=== PATIENT | male | born 1955 | race Two or more races ===

== ENCOUNTER 2024-07-09 14:53 | Emergency (ER) | payer MEDICARE, MEDICAID, SELFPAY ==
[2024-07-09 14:54] VITALS: BP 154/89; PULSE 54; RESP 18; TEMP 36.7; O2SAT 98
--- NOTE | 2024-07-09 15:46 | PD.EDADULT ---
ED General RME/HPI General Chief complaint: General Adult/Misc Complain Stated complaint: SENT BY DR. CUNNINGHAM AFTER U/S OF VEINS Time Seen by Provider: 07/09/24 15:23 Arrival date/time: 07/09/24 14:53 68-year-old male presents to the ED with complaint of bilateral groin pain. Patient was sent by his primary care physician CELINE Snyder for bilateral venous duplex radiology sent the patient directly to the ER due to bilateral acute DVTs involving the mid and distal right superficial femoral and right peroneal nerves as well as left superficial femoral left popliteal and left peroneal veins. He has a past medical history of DVTs and has been taking Eliquis for the past 6 or 7 years following gallbladder surgery. He is under the care of a flatcar whacker. He was in [place] and ran out of the [employer] and returned on July 06 without contacting anyone for refills. He started to develop pain recently. He denies any chest pain, shortness of breath, or unusual headaches. Mode of arrival: ambulatory Limitations: no limitations Related Data Home Medications ?Medication ?Instructions ?Recorded ?Confirmed apixaban 5 mg tablet (Eliquis) 5 mg PO BID 08/07/19 02/06/20 atorvastatin 10 mg tablet 10 mg PO QDAY 08/07/19 02/06/20 gabapentin 300 mg capsule 300 mg PO BID 08/07/19 02/06/20 losartan 100 1 tab PO QDAY 08/07/19 02/06/20 mg-hydrochlorothiazide 12.5 mg tablet metformin 1,000 mg tablet 1,000 mg PO BID 08/07/19 02/06/20 Previous Rx's ?Medication ?Instructions ?Recorded apixaban 5 mg tablet (Eliquis) 5 mg PO BID #74 tabs 07/09/24 Allergies Allergy/AdvReac Type Severity Reaction Status Date / Time No Known Allergies Allergy Verified 07/09/24 14:57 Review of Systems Review of Systems Systems Reviewed: All systems reviewed, normal except as documented Past Medical History Past Medical History NEUROLOGIC: Negative Neurological Disorders or Seizures CARDIAC: Positive Hypercholesterolemia and Hypertension; Negative Cardiac Disorders or Congestive Heart Failure RESPIRATORY: Negative Chronic Obstructive Pulmonary Disease (COPD) or Asthma GASTROINTESTINAL: Positive Gastrointestinal Disorders and Gastroesophageal Reflux Disease GENITOURINARY: Negative Genitourinary Disorders or Renal Disease MUSCULOSKELETAL: Positive Musculoskeletal Disorders and Arthritis ENDOCRINE: Positive Endocrine Disorders and Diabetes Mellitus Type 2; Negative Diabetes Mellitus Type 1 HEMATOLOGIC: Positive Clotting Problems; Negative Sickle Cell Disease OTHER HISTORY: Positive Chicken Pox, Measles and Mumps; Negative Hospitalization, Autoimmune Disease, Falls, Blood Transfusions, Blood Transfusion Reaction or Anesthesia Reactions Family History FAMILY HISTORY: Negative Family Cardiac Disorders Surgical History SURGICAL: Positive Joint Replacement (LEFT knee replacement) and Open Reduction Internal Fixation (LEFT ANKLE LIGAMENT REPAIR) Social History SMOKING STATUS: Former smoker ED Exam Narrative Physical exam: 68-year-old male, no acute distress, no respiratory distress. Bilateral lower extremities knee bilateral groin areas. No significant edema noted to bilateral lower extremities. Lungs are clear, regular rate and rhythm without murmurs. General Limitations: Present no limitations Course Course Course Narrative: 68-year-old male presents to the ED with complaint of bilateral groin pain. Patient was sent by his primary care physician, CELINE Snyder for bilateral venous duplex. Radiology sent the patient directly to the ER due to bilateral acute DVTs involving the mid and distal right superficial femoral and right peroneal nerves as well as left superficial femoral left popliteal and left peroneal veins. He has a past medical history of DVTs and has been taking Eliquis for the past 6 or 7 years following gallbladder surgery. He is under the care of a flatcar whacker. He was in [place] and ran out of the [employer] and returned on July 06 without contacting anyone for refills. He started to develop pain recently. He denies any chest pain, shortness of breath, or unusual headaches. 68-year-old male, no acute distress, no respiratory distress. Bilateral lower extremities knee bilateral groin areas. No significant edema noted to bilateral lower extremities. Lungs are clear, regular rate and rhythm without murmurs. Vital signs blood pressure 150/89, pulse 54, respirations 18 nonlabored, temp 98.1, O2 sat 98% on room air. Patient was started on Lovenox 80 mg subcu and will be discharged on Eliquis 5 mg p.o. twice daily, starter pack of 74 tabs. Quality Measures VTE therapy (Lovenox 80 mg subcu) Orders Category Date Time Status Enoxaparin [Lovenox] Med 07/09/24 15:51 Discontinued 80 mg SC X1 ONE Vital Signs Vital signs: Vital Signs Temperature 98.1 F 07/09/24 14:54 Pulse Rate 54 L 07/09/24 14:54 Respiratory Rate 18 07/09/24 14:54 Blood Pressure 154/89 H 07/09/24 14:54 Pulse Oximetry (%) 98 07/09/24 14:54 Oxygen Delivery Method Room Air 07/09/24 14:54 Discharge Plan Plan Patient Disposition: HOME (Self Care) Discharge Disposition comment: Stable Prescriptions/Referrals Prescriptions/Med Rec: New Eliquis 5 mg tablet 5 mg PO BID Qty: 74 0RF Rx Instructions: 2 tabs p.o. twice daily for the first 7 days then 1 tab p.o. twice daily for the remainder. No Action atorvastatin 10 mg Tablet 10 mg PO QDAY metformin 1,000 mg Tablet 1,000 mg PO BID gabapentin 300 mg Capsule 300 mg PO BID losartan-hydrochlorothiazide 100-12.5 mg Tablet 1 tab PO QDAY Eliquis 5 mg Tablet 5 mg PO BID Problem List Clinical Impression: DVT (deep venous thrombosis) Patient/Caregiver Discharge Instructions Other Activity Instructions:: As we discussed, no exercising or activity for at least 5 to 7 days. In the future, please do not run out of your medications, as not taking them can cause or permanent disability. Education Materials: ED Deep Vein Thrombosis (DVT) Additional Instructions: Follow-up with your primary care physician in 24 to 48 hours. Return to the ED for any new or worsening symptoms. Print Language: Croatian Stand Alone Forms: Sammi Award Info., Patient Portal Info Letter PA/CELINE Supervising Physician CHADWICK/CELINE Supervising Physician: Dr. Zapien [facility] Patient Acuity High Acuity (complete MDM) Narrative: 68-year-old male presents to the ED with complaint of bilateral groin pain. Patient was sent by his primary care physician, CELINE Snyder for bilateral venous duplex. Radiology sent the patient directly to the ER due to bilateral acute DVTs involving the mid and distal right superficial femoral and right peroneal nerves as well as left superficial femoral left popliteal and left peroneal veins. He has a past medical history of DVTs and has been taking Eliquis for the past 6 or 7 years following gallbladder surgery. He is under the care of a flatcar whacker. He was in [place] and ran out of the [employer] and returned on July 06 without contacting anyone for refills. He started to develop pain recently. He denies any chest pain, shortness of breath, or unusual headaches. 68-year-old male, no acute distress, no respiratory distress. Bilateral lower extremities knee bilateral groin areas. No significant edema noted to bilateral lower extremities. Lungs are clear, regular rate and rhythm without murmurs. Vital signs blood pressure 150/89, pulse 54, respirations 18 nonlabored, temp 98.1, O2 sat 98% on room air. Patient was started on Lovenox 80 mg subcu and will be discharged on Eliquis 5 mg p.o. twice daily, starter pack of 74 tabs. Clinical Information Provided by: patient Medical Records reviewed [facility] Meds/Rx considered, not ordered None Labs/Rad/Tests considered, not ordered None Describe: Patient was sent directly from radiology after bilateral venous duplex revealed bilateral DVTs of the lower extremities. Chronic Illness/Social Conditions which may negatively complicate care or outcome(s)-explain: None or not applicable EKG EKG not done Imaging Imaging interpretation: none or see narrative above Imaging Interpretation(s): Bilateral lower extremity venous duplex Findings: Positive for acute DVT involving mid and distal right superficial femoral, right peroneal veins Positive for deep vein thrombus involving left superficial femoral left popliteal left peroneal veins IMPRESSION: Extensive bilateral acute deep vein thrombus Medication Administration(s) Medication Administration History Discontinued Medications Enoxaparin Sodium (Enoxaparin Sod Inj 80 Mg/0.8 Ml Syringe) 80 mg SC X1 ONE Stop: 07/09/24 15:52 Last Admin: 07/09/24 16:23 Dose: 80 mg Documented By: Enoxaparin 80 mg subcu. Diagnosis Differential Diagnosis ED Complaint MDM: Peripheral arterial disease, DVT
[2024-07-09] MEDS: ENOXAPARIN SOD INJ 80 MG/0.8 ML SYRINGE SC (16:23)
== END 2024-07-09 16:41 | disposition home or self-care (01) ==
LOC: SERX 16:21
PROVIDERS: Emergency Provider Family Medicine; PCP Registered Nurse Community Health
DX: I82.413 Acute embolism and thrombosis of femoral vein, bilateral (principal); I82.453 Acute embolism and thrombosis of peroneal vein, bilateral; I82.432 Acute embolism and thrombosis of left popliteal vein; Z79.01 Long term (current) use of anticoagulants
CPT/HCPCS: 96372; 99283; J1650

== ENCOUNTER → 2024-07-09 | Outpatient (CLI) | payer MEDICARE, MEDICAID, SELFPAY ==
--- NOTE | 2024-07-09 13:16 | XR_ITS ---
Examination: Venous duplex lower extremity sonogram, bilateral. Date and time of exam: July 09, 2024 1400 hours INDICATIONS: Bilateral choroid pain and leg pain one month Technique: Multiple sonographic images of the deep venous system have been obtained. B-mode/2-D grayscale imaging of vascular structures and Doppler spectral analysis (waveforms) and color performed Both legs are examined. Findings: Positive for acute DVT involving mid and distal right superficial femoral, right peroneal veins Positive for deep vein thrombus involving left superficial femoral left popliteal left peroneal veins IMPRESSION: Extensive bilateral acute deep vein thrombus
== END | disposition home or self-care (01) ==
PROVIDERS: PCP Registered Nurse Community Health; Referring Provider Registered Nurse Community Health; Visit Provider Registered Nurse Community Health
DX: I82.403 Acute embolism and thrombosis of unspecified deep veins of lower extremity, bilateral (principal)
CPT/HCPCS: 93970

== ENCOUNTER → 2024-11-13 | Outpatient (CLI) | payer MEDICARE, MEDICAID, SELFPAY ==
--- NOTE | 2024-11-13 11:52 | XR_ITS ---
Examination: Testicular sonography complete TECHNIQUE: Grayscale sonographic images testes, assessment arterial inflow venous outflow Doppler spectral analysis carful analysis Date and time: November 13, 2024 1207 hours INDICATIONS: Bilateral groin pain beginning 5 months ago. FINDINGS: Right testis 4.2 cm epididymis 11 x 12 mm 5 mm epididymal cyst. Arterial flow testicle. No testicular mass. Left testis 3.8 cm epididymis 11 x 10 mm. 5 mm epididymal cyst. Arterial flow testicle. No testicular mass Mild bilateral hydroceles IMPRESSION: No testicular torsion or testicular mass. Small bilateral epididymal cysts.
--- NOTE | 2024-11-13 11:53 | XR_ITS ---
Examination: Ultrasound soft tissue extremities bilateral groin TECHNIQUE: Sonographic images right and left groin Date and time: November 13, 2024 1216 hours INDICATIONS: Bilateral groin pain beginning 5 minutes ago. FINDINGS: Right groin lymph node 17 x 11 mm. Left groin lymph node 22 x 9 mm. No hernia defect IMPRESSION: Nonspecific groin lymphadenopathy.
== END | disposition home or self-care (01) ==
PROVIDERS: PCP Registered Nurse Community Health; Referring Provider Registered Nurse Community Health; Visit Provider Registered Nurse Community Health
DX: L72.8 Other follicular cysts of the skin and subcutaneous tissue (principal); R59.0 Localized enlarged lymph nodes
CPT/HCPCS: 76870; 76882

== ENCOUNTER 2024-11-27 15:30 | Emergency (ER) | payer MEDICARE, MEDICAID, SELFPAY ==
[2024-11-27 15:56] VITALS: BP 153/88; PULSE 66; RESP 18; TEMP 37.3; O2SAT 95
--- NOTE | 2024-11-27 16:21 | PD.EDADULT ---
ED General RME/HPI General Chief complaint: General Adult/Misc Complain Stated complaint: VIOLA. THIGH PAIN Time Seen by Provider: 11/27/24 15:43 Arrival date/time: 11/27/24 15:30 68-year-old male with a history of bilateral DVTs in June currently on Eliquis reports with complaints of persistent lower extremity groin and pelvic pain. Patient denies any swelling redness bruising dysuria urinary urgency frequency hematuria difficulty having bowel movements blood or mucus in stools. Patient states the pain has been ongoing since having the bilateral DVTs. The patient denies take any medications for pain and he also denies history of fever. Patient had lower extremities and testicular Doppler studies 3 weeks ago that were negative. Limitations: no limitations Related Data Home Medications ?Medication ?Instructions ?Recorded ?Confirmed apixaban 5 mg tablet (Eliquis) 5 mg PO BID 08/07/19 02/06/20 atorvastatin 10 mg tablet 10 mg PO QDAY 08/07/19 02/06/20 gabapentin 300 mg capsule 300 mg PO BID 08/07/19 02/06/20 losartan 100 1 tab PO QDAY 08/07/19 02/06/20 mg-hydrochlorothiazide 12.5 mg tablet metformin 1,000 mg tablet 1,000 mg PO BID 08/07/19 02/06/20 Previous Rx's ?Medication ?Instructions ?Recorded apixaban 5 mg tablet (Eliquis) 5 mg PO BID #74 tabs 07/09/24 Allergies Allergy/AdvReac Type Severity Reaction Status Date / Time No Known Allergies Allergy Verified 11/27/24 15:33 Review of Systems Constitutional Constitutional: Denies fever(s), Denies lethargy and Denies malaise Cardiovascular Cardiovascular: Denies chest pain and Denies dyspnea Respiratory Respiratory: Denies cough and Denies dyspnea Gastrointestinal Gastrointestinal: Denies abdominal pain, Denies change in bowel habits, Denies change in stool character and Denies vomiting Genitourinary Genitourinary: Denies difficulty urinating, Denies dysuria, Denies genital lesions, Reports genital pain, Denies oliguria, Denies penile discharge, Denies scrotal swelling, Denies testicular mass, Denies testicular pain, Denies urinary frequency, Denies urinary hesitancy, Denies urinary incontinence and Denies urinary urgency Musculoskeletal Musculoskeletal: Reports arthralgias, Denies joint swelling, Denies numbness and Denies tingling Integumentary/Breasts Skin/Breast: Denies rash, Denies unusual bruising and Denies wounds Neurologic Neurologic: Denies numbness and Denies tingling Hematologic/Lymphatic Hematologic/Lymphatic: Reports easy bleeding, Denies easy bruising and Denies lymphadenopathy Past Medical History Past Medical History NEUROLOGIC: Negative Neurological Disorders or Seizures CARDIAC: Positive Hypercholesterolemia and Hypertension; Negative Cardiac Disorders or Congestive Heart Failure RESPIRATORY: Negative Chronic Obstructive Pulmonary Disease (COPD) or Asthma GASTROINTESTINAL: Positive Gastrointestinal Disorders and Gastroesophageal Reflux Disease GENITOURINARY: Negative Genitourinary Disorders or Renal Disease MUSCULOSKELETAL: Positive Musculoskeletal Disorders and Arthritis ENDOCRINE: Positive Endocrine Disorders and Diabetes Mellitus Type 2; Negative Diabetes Mellitus Type 1 HEMATOLOGIC: Positive Clotting Problems; Negative Blood Disorders or Sickle Cell Disease OTHER HISTORY: Positive Chicken Pox, Measles and Mumps; Negative Hospitalization, Autoimmune Disease, Falls, Blood Transfusions, Blood Transfusion Reaction or Anesthesia Reactions Family History FAMILY HISTORY: Negative Family Cardiac Disorders Surgical History SURGICAL: Positive Joint Replacement (LEFT knee replacement) and Open Reduction Internal Fixation (LEFT ANKLE LIGAMENT REPAIR) Social History SMOKING STATUS: Never smoker ED Exam General Limitations: Present no limitations General appearance: Present alert and in no apparent distress Chest Chest inspection: Present normal inspection and symmetric chest wall rise Respiratory Respiratory exam: Present normal lung sounds bilaterally Cardiovascular Cardiovascular exam: Present regular rate, normal rhythm and normal heart sounds Abdominal Exam Abdominal exam: Present soft and normal bowel sounds exam: Present normal inspection and normal testicular lie; Absent testicular tenderness, urethral discharge or scrotal swelling Extremities Exam Extremities exam: Present normal inspection and full ROM Back Exam Back exam: Present normal inspection and full ROM Neurological Exam Neurological exam: Present alert, oriented X3 and CN II-XII intact Psychiatric Psychiatric exam: Present normal affect and normal mood Skin Skin exam: Present warm, dry, intact and normal color Course Course Course Narrative: Medical Office Building [address] [place] [id number] [facility] Report Signed Patient: LOUIS GOMEZ. Record#: [id number] Birthdate: 1955 Age/Sex: 68 / M Location: [facility] Attending Dr: Maura BERGER Ordering Physician: Maura Snyder Date of Service: 11/13/24 Procedure(s): US extremity nonvascular LMTD Accession Number(s): [id number] cc: Maura Snyder; Christian Amin MD~ Examination: Ultrasound soft tissue extremities bilateral groin TECHNIQUE: Sonographic images right and left groin Date and time: November 13, 2024 1216 hours INDICATIONS: Bilateral groin pain beginning 5 minutes ago. FINDINGS: Right groin lymph node 17 x 11 mm. Left groin lymph node 22 x 9 mm. No hernia defect IMPRESSION: Nonspecific groin lymphadenopathy. Dictated By: Christian Amin MD Signed By: <Electronically signed by Christian Amin MD in [place]> 11/14/2446 DD/ 4 TD/TT: 11/14/24544 Bottle Carrier: STACY Medical Office [address] Imaging Report Signed Patient: LOUIS GOMEZ Record#: [id number] Birthdate: 1955 Age/Sex: 68 / M Location: [facility] Attending Dr: Maura BERGER Ordering Physician: Maura Snyder Date of Service: 11/13/24 Procedure(s): US testicular Accession Number(s): [id number] cc: Maura Snyder; Christian Amin MD~ Examination: Testicular sonography complete TECHNIQUE: Grayscale sonographic images testes, assessment arterial inflow venous outflow Doppler spectral analysis carful analysis Date and time: November 13, 2024 1207 hours INDICATIONS: Bilateral groin pain beginning 5 months ago. FINDINGS: Right testis 4.2 cm epididymis 11 x 12 mm 5 mm epididymal cyst. Arterial flow testicle. No testicular mass. Left testis 3.8 cm epididymis 11 x 10 mm. 5 mm epididymal cyst. Arterial flow testicle. No testicular mass Mild bilateral hydroceles IMPRESSION: No testicular torsion or testicular mass. Small bilateral epididymal cysts. Dictated By: Christian Amin MD Signed By: <Electronically signed by Christian Amin MD in OV> 11/14/2445 DD/ 3 TD/TT: 11/14/24543 Bottle Carrier: STACY Quality Measures none Vital Signs Vital signs: Vital Signs Temperature 99.2 F 11/27/24 15:56 Pulse Rate 66 11/27/24 15:56 Respiratory Rate 18 11/27/24 15:56 Blood Pressure 153/88 H 11/27/24 15:56 Pulse Oximetry (%) 95 11/27/24 15:56 Oxygen Delivery Method Room Air 11/27/24 15:56 Discharge Plan Plan Patient Disposition: HOME (Self Care) Prescriptions/Referrals Prescriptions/Med Rec: No Action atorvastatin 10 mg Tablet 10 mg PO QDAY metformin 1,000 mg Tablet 1,000 mg PO BID gabapentin 300 mg Capsule 300 mg PO BID losartan-hydrochlorothiazide 100-12.5 mg Tablet 1 tab PO QDAY Eliquis 5 mg Tablet 5 mg PO BID Eliquis 5 mg tablet 5 mg PO BID Qty: 74 0RF Rx Instructions: 2 tabs p.o. twice daily for the first 7 days then 1 tab p.o. twice daily for the remainder. Problem List Clinical Impression: Post-thrombotic syndrome Patient/Caregiver Discharge Instructions Additional Instructions: Your recent scans are normal you do not have evidence of any clots your pain is most likely the result of damage to the blood vessels in your legs from having blood clots in the past. Take medication as directed hydrate well and follow-up with your primary care provider Print Language: Ukrainian Stand Alone Forms: Sammi Award Info., Patient Portal Info Letter
== END 2024-11-27 16:55 | disposition home or self-care (01) ==
LOC: SERX 16:45
PROVIDERS: Emergency Provider Emergency Medicine; PCP Registered Nurse Community Health
DX: I87.003 Postthrombotic syndrome without complications of bilateral lower extremity (principal)
CPT/HCPCS: 99281

== ENCOUNTER → 2025-02-20 | Outpatient (BNVA) | payer MEDICARE, MEDICAID, SELFPAY | END | disposition home or self-care (01) | PROVIDERS: PCP Registered Nurse Community Health; Referring Provider Registered Nurse Community Health; Visit Provider Urology | DX: N41.9 Inflammatory disease of prostate, unspecified (principal); R31.29 Other microscopic hematuria; N43.42 Spermatocele of epididymis, multiple; E11.9 Type 2 diabetes mellitus without complications; E78.2 Mixed hyperlipidemia; Z86.718 Personal history of other venous thrombosis and embolism; M48.00 Spinal stenosis, site unspecified; N40.1 Benign prostatic hyperplasia with lower urinary tract symptoms; N13.8 Other obstructive and reflux uropathy; I10 Essential (primary) hypertension | CPT/HCPCS: 81003; 99212; 99213; G0463 ==

== ENCOUNTER → 2025-02-28 | Outpatient (CLI) | payer MEDICARE, MEDICAID, SELFPAY ==
[2025-02-28 09:21] LABS: Collection Type, Urine Clean Catch; Squamous Epithelial Cell,Urine 0 /hpf (0-5)
[2025-02-28 10:02] LABS: Bilirubin,Urine Negative (Negative); Blood,Urine Trace (Negative); Clarity,Urine Clear (Clear/Hazy); Color,Urine Lt-Yellow (Lt Yel-Yel); Glucose, Urine Negative (Negative); Ketones,Urine Negative (Negative); Leukocyte Esterase,Urine Negative (Negative); Nitrite,Urine Negative (Negative); PH,Urine 7.0 (5.0-7.0); Protein,Urine Negative (Neg - Trace); RBC,Urine 6 /hpf (0-3); Specific Gravity,Urine 1.022 (1.001-1.035); Urobilinogen,Urine Negative mg/dL (0.0-1.0); WBC,Urine 1 /hpf (0-5)
[2025-02-28 10:20] LABS: Alanine Aminotransferase 25 U/L (10-49); Albumin, Serum 4.9 gm/dL (3.4-4.8); Albumin/Globulin Ratio 1.8 (1.2-2.2); Alkaline Phosphatase 86 U/L (46-116); Anion Gap 8 (7-16); Aspartate Amino Transferase 32 U/L (0-34); BUN/Creatinine Ratio 13 Ratio (12-20); Bilirubin,Total 0.8 mg/dL (0.3-1.2); Blood Urea Nitrogen 14 mg/dL (9-23); Calcium 9.5 mg/dL (8.3-10.6); Calcium (Corrected) 9.5 mg/dL (8.5-10.1); Carbon Dioxide 29.1 mMol/L (20.0-31.0); Chloride 104 mMol/L (98-107); Creatinine (Component) 1.1 mg/dL (0.6-1.3); Globulin 2.7 gm/dL (2.3-3.5); Glucose 148 mg/dL (74-106); Osmolality,Calculated 284 (275-295); Potassium 4.7 mMol/L (3.4-5.1); Sodium 141 mMol/L (136-145); Total Protein 7.6 gm/dL (5.7-8.2); eGFR > 60 See Note
[2025-02-28 21:43] LABS: Prostate Specific Antigen 0.53 ng/mL (0-4.00)
== END | disposition home or self-care (01) ==
LOC: COPL 08:11
PROVIDERS: PCP Registered Nurse Community Health; Referring Provider Urology; Visit Provider Urology
DX: N40.1 Benign prostatic hyperplasia with lower urinary tract symptoms (principal)
CPT/HCPCS: 36415; 80053; 81001; 84153